=== PATIENT | male | born 1940 | race Caucasian/White ===

== ENCOUNTER 2024-11-23 07:17 | Observation (INO) | payer MEDICARE, SELFPAY ==
[2024-11-23] VITALS (13 sets, daily range): BP systolic 145–205; BP diastolic 75–128; BMI 27.4
[2024-11-23 00:32] LABS: Urine Character Clear (Clear)
[2024-11-23 00:40] LABS: Urine Red Blood Cell 0-2 /HPF (0-2); Urine Squamous Cell 0-2 /LPF (Few)
[2024-11-23 00:47] LABS: Hematocrit 28.5 % (39.0-52.0); Hemoglobin 9.2 g/dL (13.0-18.0); Mean Corp Hgb Conc. 32.3 g/dL (33.0-37.0); Mean Corpuscular Volume 96.3 fL (80.0-94.0); Nucleated Red Blood Cells % 0 % (-); Platelet Count 47 10^3/uL (130-400); Red Cell Dist. Width 14.6 % (11.5-14.5)
[2024-11-23 00:48] LABS: ALT (SGPT) 34 U/L (0-50); AST (SGOT) 35 U/L (17-59); Albumin 4.5 g/dl (3.5-5.0); Alkaline Phosphatase 80 U/L (38-126); Blood Urea Nitrogen 25 mg/dl (9-20); Calcium 9.2 mg/dl (8.4-10.2); Carbon Dioxide 24 mmol/L (22-30); Chloride 105 mmol/L (98-107); Glucose 111 mg/dl (70-99); Potassium 5.0 mmol/L (3.5-5.1); Sodium 135 mmol/L (135-145); Total Protein 7.0 g/dl (6.3-8.2); eGFR 50.18
[2024-11-23 04:30] LABS: COVID-19 Antigen Negative (Negative)
--- NOTE | 2024-11-23 05:20 | ED.GENMED ---
History of Present Illness
General
Chief Complaint: Weakness
Source: patient
Exam Limitations: none
Time Seen by Provider: 11/23/24 03:43
Nursing documentation reviewed up to this point in time: agreed with
History of Present Illness
History of Present Illness:
84-year-old male with history of dementia, hypertension, hyperlipidemia, diabetes who presents to the ER with his son for evaluation of change in his gait, frequent falls, confusion and generalized weakness. Patient is a poor historian due to
dementia and poor short-term recall. He says he feels fatigued but denies any other acute complaints. His son says that over the past 2 weeks or so he has had rather abrupt change in his gait�son says that where is he normally strides recently he
has been shuffling along. He has been very unsteady on his feet and has had multiple significant falls although fortunately no serious injuries. Son says that he has been increasingly confused�he says that at times he will find his father standing
staring at the wall for example. Patient brought to the ER to be evaluated. He is not on any blood thinners.
Past History
Past History
ED Past Medical History: HTN, Hypercholesterolemia and NIDDM
ED Past Surgical History: Appendectomy and Orthopedic
Social History
Tobacco: Former smoker
Living: with family
Employment: Retired
Review of Systems
Review of Systems
Unable to obtain full review of systems at this time due to: dementia
All Other Systems: Not applicable
Phy Exam
Physical Exam
Physical Exam:
General: Awake, alert, not in acute distress
Head: Normocephalic, atraumatic
Eyes: Conjunctiva normal, pupils equal round and reactive to light bilaterally, extraocular movements are intact
Throat: Airway intact, handling secretions
Neck: Trachea midline, no cervical spine tenderness, full range of motion without pain
Back: No tenderness in the thoracic or lumbar spine and no spinal step-offs
Lungs: Clear to auscultation bilaterally, no wheezing, rales, rhonchi
Heart: Regular rate and rhythm, no murmurs, gallops, or rubs; no chest wall tenderness
Abd: Soft, non distended, nontender
Neuro: Cranial nerves intact, moving all extremities equally without gross deficit
Skin: Ecchymosis to the right scapular region
Extremities: Minor skin tears to the arms and old appearing bruises but no reproducible tenderness in the arms and full range of motion without pain; no significant bruising or abrasions to the legs and full range of motion without pain; good pulses
throughout
Scores
Heart Failure Risk
Heart Failure Risk Score: Not Applicable
Heart Score for Chest Pain Patients
STEMI patient?: Not applicable
Withdrawal Assessment of Alcohol
Withdrawal Assessment Completed?: Not applicable
Course
Orders/Labs/Results
Orders:
Orders
11/23/24 00:22
Complete Blood Count/With Diff Urgent
Comprehensive Metabolic Panel Urgent
TSH Reflex To Free T4 Urgent
Comment: ADD ON
Urinalysis Reflex To Culture Urgent
Date Specimen was Collected: 11/23/24
Time Specimen was Collected: 00:12
Urine Microscopic Reflex Cult Urgent
11/23/24 03:14
CT Head W/o Iv Contrast Urgent
Comment:
Reason For Exam: fall, hit back of head
11/23/24 03:47
Electrocardiogram (*1) Urgent
Reason for Study: Fatigue / Weakness
EKG- Treatment ONCE
TSH Reflex To Free T4 Urgent
11/23/24 04:04
COVID-19 Antigen Urgent
Source: Nasal Swab
Influenza A+B Rapid Molecular Urgent
ROSALES Source: Nasal Swab
Specimen Description:
11/23/24 04:07
Add On- LAB Urgent
Tests Added?: TSH with reflex
11/23/24 05:19
NEUROLOGY CONSULT Urgent
Consulting Provider: Champ Nichols
Was physician already notified: Yes
B12 [Vitamin B12] Urgent
Ferritin Urgent
Folate Urgent
Iron Urgent
Reticulocyte Count Urgent
Total Iron Binding Urgent
Abnormal Lab Results
11/23/24
00:22
RBC 2.96 L 10^6/uL
(4.70-6.10)
Hgb 9.2 L g/dL
(13.0-18.0)
Hct 28.5 L %
(39.0-52.0)
MCV 96.3 H fL
(80.0-94.0)
MCH 31.1 H pg
(27.0-31.0)
MCHC 32.3 L g/dL
(33.0-37.0)
RDW 14.6 H %
(11.5-14.5)
Plt Count 47 L 10^3/uL
(130-400)
MPV 11.3 H fL
(7.4-10.4)
Absolute Lymphs (auto) 0.7 L 10^3/uL
(1.2-3.4)
Immature Gran % 0.8 H %
(0-0.5)
Neutrophils % 80.6 H %
(42.2-75.2)
Lymphocytes % 12.6 L %
(20.5-51.1)
BUN 25 H mg/dl
(9-20)
Creatinine 1.4 H mg/dL
(0.7-1.3)
Glucose 111 H mg/dl
(70-99)
Urine Albumin (Reflex) 3+ A
(Neg - Trace)
11/23/24 00:22
11/23/24 00:22
Vital Signs
Initial and Last Documented VS:
Initial Vital Signs
Temp Pulse Resp BP Pulse Ox
36.7 C 94 20 175/93 95
11/23/24 00:03 11/23/24 00:03 11/23/24 00:03 11/23/24 00:03 11/23/24 00:03
Last Documented Vital Signs
Temp Pulse Resp BP Pulse Ox
36.6 C 69 25 151/82 98
11/23/24 03:55 11/23/24 04:46 11/23/24 04:46 11/23/24 04:46 11/23/24 04:46
MDM/Problems Addressed
Differential Diagnosis Includes:
Weakness/gait changes: Stroke, NPH, infection including UTI, anemia, electrolyte derangement, deconditioning, polypharmacy
MDM/Problems Addressed:
84-year-old male presents for evaluation of change in gait, frequent falls, increased confusion recently. Vitals and exam as above. Labs sent off including a CBC which shows new anemia as well as significant thrombocytopenia with a platelet count
of 47,000. He has renal insufficiency with a creatinine of 1.4. Urinalysis bland. Viral swabs negative. CT head no acute abnormalities. EKG shows sinus rhythm. With change in gait and increased falls recently discussed with neurology for
consultation. High risk with his recent frequent falls and significant thrombocytopenia. Will admit for continued workup. Discussed with hospitalist.
Chronic conditions affecting care:
Dementia
*Radiology
Radiology exam reviewed: radiology read reviewed
*Pulse Oximetry
SaO2: 98
Oxygen Mode of Delivery: Room air
Patient hypoxic: no (98%)
*EKG
Interpreted by ED Provider?: Yes
Heart Rate: 78
Rate: normal
Rhythm: sinus
Hilmar: normal axis
Interval: normal interval
QRS Pattern: right bundle branch block
Ischemia: no ischemia
*Critical Care Note
Total Time (30-74mins, 75-104mins- exclusive of procedures): Not Applicable
Data Reviewed
Review of Other/Old Records Reveals: Labs and Records
Source: patient, records and family
Patient Management
Discussion with other providers: Hospitalist (Discussed with hospitalist) and Program Manager Slp (Discussed with neurologist)
Escalation/DeEscalation of care consider admission/obs:
Admission indicated
ED Attending Note
-
Portions of this chart may have been created with voice recognition software.� Occasional wrong word or��sound alike� substitutions may have occurred due to the inherent limitations of voice recognition software.
Discharge Plan
Departure
Patient Disposition: Admit
Date of Disposition: 11/23/24
Time of Disposition: 05:26
Admit to doctor: Bart
Presentation/result/management discussed w/ accepting MD/DO: Hospitalist
Discharge Problem:
Shuffling gait, Weakness, Frequent falls, Thrombocytopenia, Anemia
Prescriptions:
No Action
multivitamin Tablet
1 tab PO DAILY Qty: 0
simvastatin 40 MG tablet
40 mg PO HS
vitamin B complex Tablet
1 tab PO DAILY Qty: 0
allopurinol 100 mg Tablet
100 mg PO DAILY
finasteride 5 mg tablet
5 mg PO DAILY
donepezil 10 mg Tablet
10 mg PO HS Qty: 0 0RF
diltiazem HCl 120 mg Capsule,Extended Release 24hr
120 mg PO DAILY Qty: 0 0RF
sertraline 100 mg Tablet
100 mg PO DAILY Qty: 0 0RF
Vitamin D3
50 mcg PO DAILY
Referrals:
PRIVATE,PHYSICIAN [Family Provider, Internal Medicine]
Interventions
Interventions:
*Risk Screen - Suicide Last Done: 11/23/24 00:03
*General Assessment Last Done: 11/23/24 00:03
*Neglect/Abuse Screening Last Done: 11/23/24 00:03
*ED- Fall Risk Assessment Last Done: 11/23/24 00:03
*ED COVID-19 Vaccine History Last Done: 11/23/24 00:03
*ED Influenza Vaccine History Last Done: 11/23/24 00:03
ED- Cardiac Assessment Last Done: 11/23/24 03:41
ED-Musculoskeletal Assessment Last Done: 11/23/24 03:41
ED- Neurological Assessment Last Done: 11/23/24 03:41
ED- Pulmonary Assessment Last Done: 11/23/24 03:41
ED-Skin Assessment Last Done: 11/23/24 03:44
Discharge Date and Time
Print Language: KHMER
[2024-11-23 06:14] LABS: Reticulocyte Count 1.5 % (0.4-2.8)
--- NOTE | 2024-11-23 06:34 | HPS.HSE ---
Family Physician
-
Family Physician: PHYSICIAN PRIVATE
Chief Complaint
-
Unsteady gait / confusion
History of Present Illness
Patient is an 84y M with PMH significant for lung cancer, hypertension and DM-II who presents to ED for evaluation of confusion, gait dysfunction, etc. History obtained from patient and ED staff / records. Patient brought to the ED by his son
who notes 'abrupt' change in gait in the past two weeks. Patient reportedly with normal gait and now shuffling and unsteady. Multiple falls in that time period. Son also noted that patient seemed confused over the past 2 weeks.
Patient tells me that he has been 'passing out'. He reports multiple episodes of syncope / falls. He can provide no details. He is not certain how he came to be in the ED this evening.
Patient denies any current pain / injury. He denies any bleeding / blood loss.
Medical History
Past Medical History
Past Medical History: Reports Other
Additional Past Medical History:
Lung Cancer s/p RU Lobectomy
Hypertension
DM-II
BPH
Gout
Past Surgical History: Reports Other
Additional Past Surgical History:
Right Upper Lobectomy
Right Shoulder Surgery
T&A
Appendectomy
Social History
Tobacco: Former Smoker (Quit smoking 10 years ago.)
Alcohol: Former (Previously documented history of daily / excessive alcohol use. Patient states no alcohol in 6 months.)
Family History
Family History: Not pertinent
Allergies / Home Medications
Allergies reflects when Allergies were last updated in [facility].
Home Medications with original date entered in [facility]
Allergy/Medication List:
Allergies
Allergy/AdvReac Type Severity Reaction Status Date / Time
No Known Allergies Allergy Verified 03/09/22 15:05
Home Medications
multivitamin 1 tab PO DAILY Supplement ##0 08/01/17
simvastatin 40 mg tablet 40 mg PO HS High cholesterol 08/01/17
vitamin B complex 1 tab PO DAILY Supplement ##0 08/01/17
allopurinol 100 mg tablet 100 mg PO DAILY Gout 03/09/22
finasteride 5 mg tablet 5 mg PO DAILY Urinary issue 03/09/22
diltiazem HCl 120 mg capsule,extended release 24 hr 120 mg PO DAILY #0 caps 03/13/22
donepezil 10 mg tablet 10 mg PO HS #0 tabs 03/13/22
sertraline 100 mg tablet 100 mg PO DAILY #0 tabs 03/13/22
Vitamin D3 50 mcg PO DAILY 11/23/24
Review of Systems
-
History Source: Patient
A 12 point ROS was completed and negative except as noted: Yes
Constitutional: Reports Fatigue; Denies Fever or Chills
Respiratory: Denies Cough or Trouble Breathing
Cardiac: Denies Chest Pain or Palpitations
Abdomen/GI: Denies Abdominal Pain, Nausea, Vomiting or Diarrhea
: Denies Dysuria, Frequency or Flank Pain
Musculoskeletal: Denies Joint Pain or Edema
Skin: Reports Other (skin tear L hand, scattered bruises.)
Neurological: Reports Dizzy and Weakness; Denies Headache or Numbness
Psych: Denies Depression or Anxiety
Physical Exam
Vital Signs
Vital Signs
Temp Pulse Resp BP Pulse Ox
97.8 F 72 17 160/128 97
11/23/24 03:55 11/23/24 06:00 11/23/24 06:00 11/23/24 06:00 11/23/24 06:00
Physical Exam
General: Other (84y M in no acute distress.)
HEENT: Moist mucous membranes and PERRLA
Respiratory: Clear; No Wheezes, Rales or Rhonchi
Cardiac: S1/S2 and Regular Rhythm; No Murmur
GI: Soft, Non Tender, Non Distended and Normal Bowel Sounds
Musculoskeletal: No Clubbing, No Cyanosis and No Edema
Neuro: Awake, Alert and Other (No focal weakness. General / fine tremor and mild stiffness.); No Oriented
Laboratory Results
-
11/23/24 00:22
11/23/24 00:22
Laboratory Results
Total Bilirubin 0.5 mg/dl (0.2-1.3) 11/23/24 00:22
AST 35 U/L (17-59) 11/23/24 00:22
ALT 34 U/L (0-50) 11/23/24 00:22
Alkaline Phosphatase 80 U/L (38-126) 11/23/24 00:22
Impression/Plan
-
A/P: Patient is an 84y M with PMH significant for hypertension, DM-II and lung cancer who was brought to the ED for further evaluation of recent gait abnormality and confusion.
Metabolic Encephalopathy
Ataxia / Gait Dysfunction
- Observe overnight for further evaluation and treatment.
- Acuity of this is not entirely clear. CT head in the ED this evening is unremarkable.
- Patient with admissions several years ago for ataxia, falls, etc.
- Note prior history of chronic alcohol use.
- ? sequelae of chronic alcoholism.
- ? Parkinsonism or similar.
- Neurology consulted by ED staff.
- PT / OT evaluations.
- Check B12, folate, etc.
Macrocytic Anemia
Thrombocytopenia
- Unclear acuity or etiology.
- Most recent prior labs are from 2+ years ago.
- Again, results potentially c/w sequelae of chronic alcohol use / possible cirrhosis.
- Check abd US, B12, folate, etc.
- Follow cell counts for changes.
- Consider Hematology evaluation.
Renal Insufficiency
- SCr = 1.4 with prior baseline around 1.1 (but no recent labs).
- ? JAZ v progression of CKD.
- IVFs. Follow labs / lytes for changes and establish baseline SCr over the next 48 hours.
Benign Hypertension
- BP acutely elevated in the ED.
- Continue current diltiazem.
- IV hydralazine for very high BP.
- Adjust regimen as needed for improved control.
DM-II
- ? diet-controlled. Not on any listed DM medications.
- Follow glucose and cover with SSI as needed.
- Update A1C.
BPH
- Stable. Continue finasteride.
- Bladder scan protocol.
Senile Dementia
Anxiety / Depression
- ? increased confusion, gait, etc represents progression of known dementia (on Aricept).
- Continue current med regimen.
DVT Prophylaxis: SCDs
Code Status: Full
[2024-11-23 06:44] LABS: Iron 74 ug/dl (49-181)
[2024-11-23 06:53] LABS: Total Iron Binding Capacity 402 ug/dl (261-462)
[2024-11-23 07:15] LABS: Ferritin 20.3 ng/ml (17.9-464.0)
[2024-11-23 07:46] LABS: Folate > 20.0 ng/ml (2.76-20); Vitamin B12 700 pg/ml (239-931)
[2024-11-23 08:05] LABS: Glucose - Point of Care 115 mg/dl (70-99)
[2024-11-23] MEDS: B COMPLEX w/VITAMIN C 1 CAPLET PO (08:52)
[2024-11-23] MEDS: CARDIZEM CD 120 MG PO (08:52)
[2024-11-23] MEDS: ZOLOFT 100 MG PO (08:52)
[2024-11-23] MEDS: PROSCAR 5 MG PO (08:52)
[2024-11-23] MEDS: ZYLOPRIM 100 MG PO (08:52)
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
--- NOTE | 2024-11-23 10:55 | W.PN.HOSP.TC ---
Today's Communication/Plan
-
see plan
Assessment / Plan
Assessment / Plan
84y M with PMH significant for hypertension, DM-II and lung cancer who was brought to the ED for further evaluation of recent gait abnormality and confusion.
Gen: NAD, Awake and alert
Eyes: EOMI, PERRLA, no scleral icterus.
Neck: supple.
CV: RRR, +S1/S2, no m/r/g.
Resp: CTAB, no rales, wheezes, or rhonchi.
Abd: +BS, soft, NT, ND
Skin: No rashes.
Neuro: CN 2-12 intact, non-focal.
Psych: Normal mood and affect.
CT brain: No acute intracranial abnormalities. Findings again seen compatible with diffuse cortical atrophy with nonspecific white matter changes as described above.
Possible acute metabolic encephalopathy and Ataxia/Gait Dysfunction:
-Acuity of this is not entirely clear. CT head in the ED this evening is unremarkable.
-Patient with admissions several years ago for ataxia, falls, etc.
-Note prior history of chronic alcohol use.
-suspect sequelae of chronic alcoholism and well as progression of Alzheimer's (likely) dementia
-Neurology consulted by ED staff
-PT/OT
-B12/folate/TSH normal
-with acute agitation will give one dose Haldol 1mg IV
Macrocytic Anemia and thrombocytopenia
-Unclear acuity or etiology.
-Most recent prior labs are from over 2 years ago
-likely sequelae of chronic alcohol use/possible cirrhosis.
-follow counts but without bleeding, etc, can be worked up outpt
Possible JAZ:
-Cr 1.1 over 2 years ago
-cont IVFs
Other problems:
Essential HTN: cont Cardizem, IV hydralazine PRN
DM2: ? diet-controlled. Not on any listed DM medications. SSI/accuchecks, check a1c.
BPH: cont finasteride
Alzheimer's (likely) Dementia, Anxiety/Depression: ? increased confusion, gait, etc represents progression of known dementia (on Aricept). Cont Aricept/Zoloft.
FULL/SCDs
Dispo: neuro c/s, PT/OT
Anticipated Discharge: Within 24 hours
Subjective/Interval History
-
Date of Service: November 23, 2024
Pt does not offer acute complaints.
Objective Data
-
Labs:
Laboratory Results
11/23/24
00:22
WBC 5.2
Hgb 9.2 L
Hct 28.5 L
Plt Count 47 L
Sodium 135
Potassium 5.0
Chloride 105
Carbon Dioxide 24
BUN 25 H
Creatinine 1.4 H
Glucose 111 H
Calcium 9.2
Total Bilirubin 0.5
AST 35
ALT 34
Alkaline Phosphatase 80
Vital Signs:
Vital Signs
Temp Pulse Resp BP Pulse Ox
98.2 F 77 21 155/83 96
11/23/24 07:57 11/23/24 08:52 11/23/24 07:30 11/23/24 08:52 11/23/24 07:57
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
[2024-11-23] MEDS: HALDOL 1 MG IV (11:04)
--- NOTE | 2024-11-23 11:37 | W.PN.UPDATE ---
Update Note
Progress Note Update
Case discussed with neurology. Patient's presenting issues are related to progression of chronic diseases, likely Alzheimer's dementia as well as sequelae of prior alcoholism. No acute issues that require acute care hospital management at this
time. The patient is medically cleared for discharge. Case management is aware.
[2024-11-23 12:05] LABS: Glucose - Point of Care 133 mg/dl (70-99)
--- NOTE | 2024-11-23 13:31 | W.DCSUMMARY ---
Discharge Summary
Discharge Data
Date of Admission: 11/23/24
Date of Discharge: 11/23/24
-
Pending Results: Yes
Additional Pending Results:
Hba1c
Hospital Course
Primary diagnoses:
Acute metabolic encephalopathy due to likely progression of dementia (likely Alzheimer's) and sequela of alcoholic encephalopathy
Secondary diagnoses:
h/o lung cancer
Possible acute kidney injury
Essential hypertension
DM2 (likely diet-controlled)
Benign prostatic hypertrophy
Anxiety
Depression
Consultants:
Neurology
Imaging:
CT brain: No acute intracranial abnormalities. Findings again seen compatible with diffuse cortical atrophy with nonspecific white matter changes as described above.
84-year-old male who was admitted earlier this morning with chief complaints of unsteady gait and confusion as outlined in the H&P done on admission. Hospital course per problem list:
Acute metabolic encephalopathy due to likely progression of dementia (likely Alzheimer's) and sequela of alcoholic encephalopathy: The acuity of this was not entirely clear. CT head above and without acute intracranial abnormalities. The patient
had admissions several years ago for ataxia, falls, etc. He also had a prior history of chronic alcohol use. It is most likely that the patient's presenting symptoms (falls/ataxia) were due to progression of the patient's dementia (likely
Alzheimer's) and sequela of alcoholic encephalopathy. B12/folate/TSH were normal. The patient was seen by neurology and discussed with Dr. Nichols. There were no acute medical issues that required further workup or care in an acute care hospital.
Macrocytic Anemia and thrombocytopenia: This was of unclear acuity or etiology. The patient's most recent prior labs were from over 2 years prior to admission. His macrocytic anemia and thrombocytopenia were likely sequelae of chronic alcohol
use/possible cirrhosis. He will need to follow-up with hematology.
Possible JAZ: The patient's creatinine was 1.1 over 2 years prior to admission. He received IV fluids while in the hospital.
Discharge Plan
-
Patient Disposition: Home (Routine Discharge)
Discharge Diagnosis/Procedures: Acute metabolic encephalopathy due to likely progression of dementia (likely Alzheimer's) and sequela of alcoholic encephalopathy
Condition: Fair
Diet: Diabetic, Carb Controlled
Activity: With assistance
Driving Restrictions: No driving
Referrals:
PRIVATE,PHYSICIAN [Family Provider, Internal Medicine] - in less than 1 week
Bruce Carlson MD [Active, Hematology / Oncology] - in one to two weeks
Referral Note: Anemia and thrombocytopenia
Prescriptions:
Continued
multivitamin Tablet
1 tab PO DAILY Qty: 0
simvastatin 40 MG tablet
40 mg PO HS
vitamin B complex Tablet
1 tab PO DAILY Qty: 0
allopurinol 100 mg Tablet
100 mg PO DAILY
finasteride 5 mg tablet
5 mg PO DAILY
donepezil 10 mg Tablet
10 mg PO HS Qty: 0 0RF
diltiazem HCl 120 mg Capsule,Extended Release 24hr
120 mg PO DAILY Qty: 0 0RF
sertraline 100 mg Tablet
100 mg PO DAILY Qty: 0 0RF
Vitamin D3
50 mcg PO DAILY
Discharge Orders:
Discharge Patient (As Directed); Ordered 11/23/24
Ordered By: Ko Feng
Discharge Date and Time
Print Language: SWISS
[2024-11-23 14:32] LABS: Glycohemoglobin (HgbA1c) 5.7 % (4.0-5.6)
--- NOTE | 2024-11-23 14:42 | CON.NEURO4 ---
Consultation - Neurology 4
-
CONSULTING PHYSICIAN: Champ Nichols MD
REFERRING PHYSICIAN: Ko Feng MD
DICTATED BY: Champ Nichols MD
DATE/TIME OF REQUEST: 11/23/2024
DATE/TIME OF CONSULTATION: 11/23/2024
Reason for Consultation: Confusion and unsteady gait.
Assessment and Plan:
The patient is an 84 years old male with a past medical history of lung cancer, hypertension and diabetes, who presented to the ER for evaluation of confusion and unsteady gait. According to the patient's son, he noted that there was a change in
the patient's gait about 2 weeks ago. He also has fallen many times in the last 2 weeks. The patient has been confused for the last 2 weeks also, as per patient's son. The patient is at home on Aricept and the symptoms are likely due to
progression of Alzheimer's disease. The patient has a prior history of chronic alcohol use and is likely contributing to encephalopathy. Continue home Aricept and sertraline.
CT of the head did not show any acute intracranial abnormalities.
The patient does not appear to have a stroke and is confusion is likely related to acute metabolic encephalopathy.
The patient was discharged as there was no acute medical issue that required further workup or care in the hospital.
The case management was aware of the patient's discharge.
Recommend to follow-up in neurology clinic in about 2 weeks.
History of Present Illness:
The patient is an 84 years old male with a past medical history of lung cancer, hypertension and diabetes, who presented to the ER for evaluation of confusion and unsteady gait. According to the patient's son, he noted that there was a change in
the patient's gait about 2 weeks ago. He also has fallen many times in the last 2 weeks. The patient has been confused for the last 2 weeks also, as per patient's son.
Past Medical History:
Cancer s/p RU Lobectomy
Hypertension
DM-II
BPH
Gout
Review of Systems: Unable to obtain review of systems due to mental status change.
Neurologic Examination:
The patient is alert and is oriented to his name however, he does not know the month or the year. The patient was able to tell the name of the President.
Speech is clear.
The cranial nerves II to XII are grossly intact.
The strength is grossly normal in bilateral upper and lower extremities.
Sensation is grossly intact.
The cerebellar exam could not be done as the patient was unable to cooperate due to confusion.
Vital Signs and Labs
-
Vital Signs and Labs:
Vital Signs
Temp Pulse Resp BP Pulse Ox
36.8 C 77 21 155/83 96
11/23/24 07:57 11/23/24 08:52 11/23/24 07:30 11/23/24 08:52 11/23/24 07:57
Lab Results
11/23/24 00:22
11/23/24 00:22
Sodium 135 mmol/L (135-145) 11/23/24 00:22
Potassium 5.0 mmol/L (3.5-5.1) 11/23/24 00:22
BUN 25 mg/dl (9-20) H 11/23/24 00:22
Glucose 111 mg/dl (70-99) H 11/23/24 00:22
Calcium 9.2 mg/dl (8.4-10.2) 11/23/24 00:22
Vitamin B12 700 pg/ml (239-931) 11/23/24 05:58
Medications
-
Active Medications
Generic Name Dose Route Start Last Admin
Trade Name Freq PRN Reason Stop Dose Admin
Acetaminophen 650 mg 11/23/24 07:39
Acetaminophen 325 Mg Tablet PO 12/21/24 07:38
Q4HPRN PRN
Mild Pain / Temp > 101
Allopurinol 100 mg 11/23/24 08:00 11/23/24 08:52
Allopurinol 100 Mg Tablet PO 12/21/24 07:59 100 mg
DAILY RADHA Administration
Atorvastatin Calcium 20 mg 11/23/24 22:00
Atorvastatin (Lipitor) 20 Mg Tablet PO 12/21/24 21:59
HS RADHA
Dextrose 12.5 grams 11/23/24 07:39
Dextrose 50% (0.5 Grams/Ml) 50 Ml Syringe IV 12/21/24 07:38
[id number] PRN
hypoglycemia
Protocol
Diltiazem HCl 120 mg 11/23/24 08:00 11/23/24 08:52
Diltiazem 120 Mg Extended Release (24 H) Capsule PO 12/21/24 07:59 120 mg
DAILY RADHA Administration
Donepezil HCl 10 mg 11/23/24 22:00
Donepezil Hcl 10 Mg Tablet PO 12/21/24 21:59
HS RADHA
Finasteride 5 mg 11/23/24 08:00 11/23/24 08:52
Finasteride 5 Mg Tablet PO 12/21/24 07:59 5 mg
DAILY RADHA Administration
Glucagon 1 mg 11/23/24 07:39
Glucagon 1 Mg Vial IM 12/21/24 07:38
PRN PRN
hypoglycemia
Protocol
Insulin Aspart 0 units 11/23/24 07:39 11/23/24 12:33
Insulin Aspart Low Resistance 300 Units/3 Ml Pen.Injctr SC 12/21/24 07:38 Not Given
AC RADHA
Protocol
Sertraline HCl 100 mg 11/23/24 08:00 11/23/24 08:52
Sertraline 100 Mg Tablet PO 12/21/24 07:59 100 mg
DAILY RADHA Administration
Sodium Chloride 0 flush 11/23/24 09:00
Sodium Chloride 0.9% (Flush) Syringe IV 12/21/24 08:59
PER PROTOCOL RADHA
Vitamin B Complex/Vitamin C 1 caplet 11/23/24 08:00 11/23/24 08:52
Vitamin B Complex With Vitamin C Caplet PO 12/21/24 07:59 1 caplet
DAILY RADHA Administration
Home Medications
�Medication �Instructions �Recorded
multivitamin 1 tab PO DAILY Supplement ##0 08/01/17
simvastatin 40 mg tablet 40 mg PO HS High cholesterol 08/01/17
vitamin B complex 1 tab PO DAILY Supplement ##0 08/01/17
allopurinol 100 mg tablet 100 mg PO DAILY Gout 03/09/22
finasteride 5 mg tablet 5 mg PO DAILY Urinary issue 03/09/22
diltiazem HCl 120 mg 120 mg PO DAILY #0 caps 03/13/22
capsule,extended release 24 hr
donepezil 10 mg tablet 10 mg PO HS #0 tabs 03/13/22
sertraline 100 mg tablet 100 mg PO DAILY #0 tabs 03/13/22
Vitamin D3 50 mcg PO DAILY 11/23/24
--- NOTE | 2024-11-23 15:00 | PTCARENOTE ---
Patient ordered discharge, son to take patient to his house for discharge. Son stated he will come back for patient in 1-2 hours in order to get everything ready. CM made aware.
== END 2024-11-23 16:25 | disposition home or self-care (01) ==
LOC: ED 07:17
PROVIDERS: Emergency Medicine; ADMITTING PHYSICIAN Hospitalist; ATTENDING PHYSICIAN Internal Medicine; CONSULT PHYSICIAN Psychiatry & Neurology Neurology; EMERGENCY PHYSICIAN Emergency Medicine
DX: G93.41 Metabolic encephalopathy (principal); D53.9 Nutritional anemia, unspecified; D69.6 Thrombocytopenia, unspecified; N40.0 Benign prostatic hyperplasia without lower urinary tract symptoms; G31.2 Degeneration of nervous system due to alcohol; F02.83 Dementia in other diseases classified elsewhere, unspecified severity, with mood disturbance; F02.84 Dementia in other diseases classified elsewhere, unspecified severity, with anxiety; Z85.118 Personal history of other malignant neoplasm of bronchus and lung; E11.9 Type 2 diabetes mellitus without complications; I10 Essential (primary) hypertension; M10.9 Gout, unspecified; F10.20 Alcohol dependence, uncomplicated; Z87.891 Personal history of nicotine dependence
CPT/HCPCS: 70450; 80053; 81003; 81015; 82077; 82607; 82728; 82746; 82962; 83036; 83540; 83550; 84443; 85025; 85045; 87502; 87811; 93005; 99285; G0378